=== PATIENT | female | born 2005 | race Two or more races ===

== ENCOUNTER 2024-04-10 15:18 | Emergency (ER) | payer MEDICAID, SELFPAY ==
[2024-04-10 15:28] VITALS: BP 100/68; PULSE 88; RESP 16; TEMP 36.8; O2SAT 97; BMI 28.0
--- NOTE | 2024-04-10 15:51 | EDNOTE_ITS ---
<Statement entered by Ria Armas MD - 04/10/24 16:20> As co-signing physician, I was present and available for consult prn. I concur with the plan and care as documented by the midlevel provider. ED Ear RME/HPI General Chief complaint: Ear Stated complaint: Bug in ear since 0600 today Time Seen by Provider: 04/10/24 15:26 Arrival date/time: 04/10/24 15:18 19-year-old female presents to the emergency department stating she slept over her boyfriend's house and had a bug crawl into her right ear patient reports he does not feel the bug moving but knows that there is an insect in her ear Limitations: no limitations Related Data Home Medications ?Medication ?Instructions ?Recorded ?Confirmed ergocalciferol (vitamin D2) 1,250 1,250 unit PO 1XD 02/21/24 02/21/24 mcg (50,000 unit) capsule Allergies Allergy/AdvReac Type Severity Reaction Status Date / Time No Known Allergies Allergy Verified 04/10/24 15:19 Review of Systems Review of Systems Systems Reviewed: All systems reviewed, normal except as documented Constitutional Constitutional: Reports system reviewed and no additional complaints, except as documented, Denies fever(s) and Denies headache(s) Eyes Eyes: Reports system reviewed and no additional complaints, except as documented and Denies blurry vision ENT Ears, Nose, Mouth, and Throat: Reports system reviewed and no additional complaints, except as documented, Denies headache(s), Denies nasal congestion, Denies nasal discharge and Reports other (Foreign body right ear) Cardiovascular Cardiovascular: Reports system reviewed and no additional complaints, except as documented, Denies chest pain and Denies dyspnea Respiratory Respiratory: Reports system reviewed and no additional complaints, except as documented, Denies chest congestion, Denies cough and Denies dyspnea Gastrointestinal Gastrointestinal: Reports system reviewed and no additional complaints, except as documented and Denies abdominal pain Integumentary/Breasts Skin/Breast: Reports system reviewed and no additional complaints, except as documented and Denies rash Neurologic Neurologic: Reports system reviewed and no additional complaints, except as documented, Reports as per HPI and Denies headache(s) Past Medical History Past Medical History NEUROLOGIC: Positive Neurological Disorders, Seizures and Spina Bifida CARDIAC: Negative Cardiac Disorders or Congestive Heart Failure RESPIRATORY: Negative Chronic Obstructive Pulmonary Disease (COPD) or Asthma GASTROINTESTINAL: Negative Gastrointestinal Disorders or Hepatitis GENITOURINARY: Positive Genitourinary Disorders; Negative Renal Disease REPRODUCTIVE: Negative Endometriosis, Genital Herpes, Gonorrhea, Pelvic Inflammatory Disease, Previous Pregnancies, Syphilis or Uterine Prolapse MUSCULOSKELETAL: Negative Musculoskeletal Disorders ENDOCRINE: Negative Endocrine Disorders, Diabetes Mellitus Type 1 or Diabetes Mellitus Type 2 HEMATOLOGIC: Negative Blood Disorders OTHER HISTORY: Positive Chicken Pox; Negative Hospitalization, Autoimmune Disease, Down Syndrome, Developmental Delay, Shingles, Falls, Blood Transfusions, Blood Transfusion Reaction, Anesthesia Reactions, Organ Transplant, Chemotherapy, Radiation Therapy, Hyperbaric Therapy, MRSA, VRSA, Vancomycin-Resistant Enterococci, Human Immunodeficiency Virus (HIV), Measles, Mumps, Rubella ([place] Measles), Pertussis, Clostridium Difficile or Cancer Family History FAMILY HISTORY: Negative Family Psychiatric Problems, Family Respiratory Disorders, Family Cardiac Disorders, Family Gastrointestinal Problems, Family Cancer, Family Surgery or Family Anesthesia Reaction Surgical History SURGICAL: Negative Section or Organ Transplant Social History SMOKING STATUS: Never smoker SECOND HAND EXPOSURE: No SUBSTANCE USE: does not use ED Exam General Limitations: Present no limitations General appearance: Present alert and in no apparent distress Head Head exam: Present atraumatic Eye Eye exam: Present normal appearance, PERRL and EOMI ENT ENT exam: Present mucous membranes moist and other (Foreign body right ear) Neck Neck exam: Present normal inspection, full ROM and trachea midline Chest Chest inspection: Present normal inspection and symmetric chest wall rise Respiratory Respiratory exam: Present normal lung sounds bilaterally Cardiovascular Cardiovascular exam: Present regular rate, normal rhythm and normal heart sounds Abdominal Exam Abdominal exam: Present soft and normal bowel sounds Extremities Exam Extremities exam: Present normal inspection and full ROM Back Exam Back exam: Present normal inspection and full ROM Neurological Exam Neurological exam: Present alert, oriented X3 and CN II-XII intact Psychiatric Psychiatric exam: Present normal affect and normal mood Skin Skin exam: Present warm, dry, intact and normal color Course Quality Measures none Orders Category Date Time Status ED Ear Irrigation X1 Care 04/10/24 15:32 Active Vital Signs Vital signs: Vital Signs Temperature 98.3 F 04/10/24 15:28 Pulse Rate 88 04/10/24 15:28 Respiratory Rate 16 04/10/24 15:28 Blood Pressure 100/68 04/10/24 15:28 Pulse Oximetry (%) 97 04/10/24 15:28 Oxygen Delivery Method Room Air 04/10/24 15:28 O2 saturation 97% room air within normal limits Procedures -ED FB Removal Ear Location: ear canal (R) Foreign Body Suspected: insect TM intact pre-procedure: unable to visualize Foreign Body Removed: yes Foreign Body Removal Technique: irrigation Tympanic Membrane Intact Post Procedure: Yes Patient Tolerated Procedure: well Complications: none Ear Patient data External records reviewed:: [facility] previous records Clinical information provided by:: patient Social determinants that could affect healthcare access:: none Patient has the following chronic illnesses:: None How is presenting disease/condition affected by chronic disease/condition?: no chronic disease Evaluation data The following diagnostics were reviewed and interpreted by me:: other (specify) (N/A) Lab and/or radiology exams considered but not ordered:: Consider not ordered Interpretation Summary: N/A Medications / Prescriptions Medications or Prescriptions considered but not ordered:: Given no meds Medication administrations:: Given no meds Consultations Consultation(s) initiated? (list below): No Diagnosis Ear Differential Diagnosis: otitis externa, otitis media and foreign body in ear Most likely diagnosis given after review of the tests above:: Foreign body right ear Admission Indicated Admission indicated?: not indicated Admission Request Was there a request for admission?: No Disposition Plan Disposition Plan: Discharge Discharge Attestation Discharge Attestation: The patient and all family members were given an opportunity to ask questions and understood the discharge instructions. Discharge instructions specifically effects, indications for sooner follow up or return to the emergency department, and the expected course of current diagnosis. Patient condition: Stable Medical Decision Making MDM Narrative MDM Narrative: 19-year-old female presents to the emergency department stating she slept over her boyfriend's house and had a bug crawl into her right ear patient reports he does not feel the bug moving but knows that there is an insect in her ear On exam patient does have foreign body in the right ear consistent with a bug Right ear irrigated copiously the bug is removed its entirety no evidence of canal trauma Patient discharged home in no distress to follow-up with primary care doctor in the next 24 to 48 hours and for any worsening symptoms to return to the ER immediately Differential Diagnosis Differential Diagnosis: Otitis media, otitis externa, foreign body right ear Medical Records Medical records reviewed: Yes I reviewed the patient's medical records. Discharge Plan Plan Patient Disposition: HOME (Self Care) Disposition Comment: Stable Prescriptions/Referrals Prescriptions/Med Rec: No Action ergocalciferol (vitamin D2) 1,250 mcg (50,000 unit) capsule 1,250 unit PO 1XD Patient Comments: take 1 capsule by mouth every week Problem List Clinical Impression: Foreign body in right ear Patient/Caregiver Discharge Instructions Education Materials: Anatomy of the Ear Additional Instructions: Please follow up with your primary care doctor in the next 24-48hrs for any worsening symptoms return here immediately Print Language: Gabonese Stand Alone Forms: Kiki Award Info., Patient Portal Info Letter PA/BROADCAST DIRECTOR OPERATIONS Supervising Physician PA/BROADCAST DIRECTOR OPERATIONS Supervising Physician: Dr. ARMAS
== END 2024-04-10 15:51 | disposition home or self-care (01) ==
PROVIDERS: Emergency Provider Emergency Medicine; PCP Family Medicine
DX: T16.1XXA Foreign body in right ear, initial encounter (principal); W44.F4XA Insect entering into or through a natural orifice, initial encounter
CPT/HCPCS: 69200; 99283

== ENCOUNTER 2024-06-30 20:55 | Emergency (ER) | payer MEDICAID, SELFPAY ==
--- NOTE | 2024-06-30 21:00 | EKG_ITS ---
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
[2024-06-30 21:19] VITALS: BP 111/75; PULSE 87; RESP 18; TEMP 36.8; O2SAT 98
--- NOTE | 2024-07-01 01:09 | PD.EDANX ---
ED Anxiety RME/HPI General Chief Complaint: Chest Pain Stated Complaint: 12 wks preg chest pain Time Seen by Provider: 06/30/24 21:43 Arrival date/time: 06/30/24 20:55 19F with history of anxiety/depression and seizures (has been taking meds) presents to ED with several weeks of intermittent CP. Patient is currently 12 weeks , but denies SOB, URI symptoms, ab pain, and vaginal bleeding. Patient recently stopped SSRI due to . Patient denies SI/HI. Limitations: no limitations Related Data Home Medications ?Medication ?Instructions ?Recorded ?Confirmed ergocalciferol (vitamin D2) 1,250 1,250 unit PO 1XD 02/21/24 02/21/24 mcg (50,000 unit) capsule Allergies Allergy/AdvReac Type Severity Reaction Status Date / Time No Known Allergies Allergy Verified 06/30/24 21:00 Review of Systems Review of Systems Systems Reviewed: All systems reviewed, normal except as documented Constitutional Constitutional: Reports system reviewed and no additional complaints, except as documented, Denies fever(s) and Denies headache(s) ENT Ears, Nose, Mouth, and Throat: Denies disequilibrium and Denies headache(s) Cardiovascular Cardiovascular: Reports system reviewed and no additional complaints, except as documented, Reports as per HPI, Reports chest pain and Denies dyspnea Respiratory Respiratory: Reports system reviewed and no additional complaints, except as documented, Denies cough and Denies dyspnea Gastrointestinal Gastrointestinal: Reports system reviewed and no additional complaints, except as documented, Denies abdominal pain, Denies nausea and Denies vomiting Neurologic Neurologic: Reports system reviewed and no additional complaints, except as documented, Denies confusion, Denies disequilibrium and Denies headache(s) Psychiatric Psychiatric: Denies confusion Past Medical History Past Medical History NEUROLOGIC: Positive Neurological Disorders, Seizures and Spina Bifida CARDIAC: Negative Cardiac Disorders or Congestive Heart Failure RESPIRATORY: Negative Chronic Obstructive Pulmonary Disease (COPD) or Asthma GASTROINTESTINAL: Negative Gastrointestinal Disorders or Hepatitis GENITOURINARY: Positive Genitourinary Disorders; Negative Renal Disease REPRODUCTIVE: Negative Endometriosis, Genital Herpes, Gonorrhea, Pelvic Inflammatory Disease, Previous Pregnancies, Syphilis or Uterine Prolapse MUSCULOSKELETAL: Negative Musculoskeletal Disorders ENDOCRINE: Negative Endocrine Disorders, Diabetes Mellitus Type 1 or Diabetes Mellitus Type 2 HEMATOLOGIC: Negative Blood Disorders OTHER HISTORY: Positive Chicken Pox; Negative Hospitalization, Autoimmune Disease, Down Syndrome, Developmental Delay, Shingles, Falls, Blood Transfusions, Blood Transfusion Reaction, Anesthesia Reactions, Organ Transplant, Chemotherapy, Radiation Therapy, Hyperbaric Therapy, MRSA, VRSA, Vancomycin-Resistant Enterococci, Human Immunodeficiency Virus (HIV), Measles, Mumps, Rubella ([place] Measles), Pertussis, Clostridium Difficile or Cancer Family History FAMILY HISTORY: Negative Family Psychiatric Problems, Family Respiratory Disorders, Family Cardiac Disorders, Family Gastrointestinal Problems, Family Cancer, Family Surgery or Family Anesthesia Reaction Surgical History SURGICAL: Negative Section or Organ Transplant Social History SMOKING STATUS: Never smoker SECOND HAND EXPOSURE: No SUBSTANCE USE: does not use ED Exam General Limitations: Present no limitations General appearance: Present alert and in no apparent distress Head Head exam: Present atraumatic Eye Eye exam: Present normal appearance, PERRL and EOMI ENT ENT exam: Present normal exam, normal oropharynx and mucous membranes moist Neck Neck exam: Present normal inspection, full ROM and trachea midline Chest Chest inspection: Present normal inspection and symmetric chest wall rise Respiratory Respiratory exam: Present normal lung sounds bilaterally Cardiovascular Cardiovascular exam: Present regular rate, normal rhythm and normal heart sounds Abdominal Exam Abdominal exam: Present soft and normal bowel sounds Extremities Exam Extremities exam: Present normal inspection and full ROM Back Exam Back exam: Present normal inspection and full ROM Neurological Exam Neurological exam: Present alert, oriented X3 and CN II-XII intact Psychiatric Psychiatric exam: Present normal mood and flat affect (somewhat) Skin Skin exam: Present warm, dry, intact and normal color Course Quality Measures none Orders Category Date Time Status EKG (ED ONLY) *Do not use* NOW Care 06/30/24 21:00 Completed EKG (ED Only) Stat Exams 06/30/24 21:00 Draft Vital Signs Vital signs: Vital Signs Temperature 98.3 F 06/30/24 21:19 Pulse Rate 87 06/30/24 21:19 Respiratory Rate 18 06/30/24 21:19 Blood Pressure 111/75 06/30/24 21:19 Pulse Oximetry (%) 98 06/30/24 21:19 Oxygen Delivery Method Room Air 06/30/24 21:19 Anxiety MDM Narrative MDM Narrative: 19F with history of anxiety/depression and seizures (has been taking meds) presents to ED with several weeks of intermittent CP. Patient is currently 12 weeks , but denies SOB, URI symptoms, ab pain, and vaginal bleeding. Patient recently stopped SSRI due to . Patient denies SI/HI. Physical exam reveals clear lungs. RRR. Patient is afebrile, alert, but has a somewhat flat affect. EKG is NSR. Likely stress reaction/anxiety. Patient declines benzo. Patient data External records reviewed:: [facility] previous records Clinical information provided by:: patient Social determinants that could affect healthcare access:: mental health Patient has the following chronic illnesses:: anxiety/depression and seizures How is presenting disease/condition affected by chronic disease/condition?: exacerbated by Evaluation data The following diagnostics were reviewed and interpreted by me:: EKG tracing(s) Lab and/or radiology exams considered but not ordered:: ordered Interpretation Summary: above Medications / Prescriptions Medications or Prescriptions considered but not ordered:: not ordered Medication administrations:: n/a Consultations Consultation(s) initiated? (list below): No Diagnosis Differential diagnosis anxiety: hyperventilation, panic disorder, acute anxiety and other (stress reaction) Most likely diagnosis given after review of the tests above:: stress reaction Admission Indicated Admission indicated?: not indicated Admission Request Was there a request for admission?: No Disposition Plan Disposition Plan: Discharge Discharge Attestation Discharge Attestation: The patient and all family members were given an opportunity to ask questions and understood the discharge instructions. Discharge instructions specifically effects, indications for sooner follow up or return to the emergency department, and the expected course of current diagnosis. Patient condition: Stable Discharge Plan Plan Patient Disposition: HOME (Self Care) Disposition Comment: Stable Prescriptions/Referrals Prescriptions/Med Rec: No Action ergocalciferol (vitamin D2) 1,250 mcg (50,000 unit) capsule 1,250 unit PO 1XD Patient Comments: take 1 capsule by mouth every week Problem List Clinical Impression: Stress reaction Patient/Caregiver Discharge Instructions Education Materials: Your Body's Response to Anxiety Additional Instructions: Please follow-up with PCP within 24-48 hours and return immediately if symptoms worsen. Print Language: Djiboutian Stand Alone Forms: Patient Portal Info Letter OTTO/BETO Supervising Physician OTTO/BETO Supervising Physician: Dr. Saldivar
== END 2024-06-30 21:48 | disposition home or self-care (01) ==
LOC: SERX 21:51
PROVIDERS: Emergency Provider Emergency Medicine; PCP Family Medicine
DX: O99.341 Other mental disorders complicating pregnancy, first trimester (principal); F43.9 Reaction to severe stress, unspecified; F41.9 Anxiety disorder, unspecified; F32.A Depression, unspecified
CPT/HCPCS: 93005; 99283

== ENCOUNTER 2024-08-29 03:15 | Emergency (ER) | payer MEDICAID, SELFPAY ==
[2024-08-29 03:17] VITALS: BMI 31.0
[2024-08-29 03:27] VITALS: BP 104/69; PULSE 95; RESP 16; TEMP 36.8; O2SAT 97
--- NOTE | 2024-08-29 03:54 | XR_ITS ---
Examination: Complete OB ultrasound greater than 14 weeks Date and time of exam: August 29, 2024, 0541 hours INDICATIONS: Seizure one hour ago Findings: Viable intrauterine single fetus with single amniotic sac presentation breech Cardiac motion 132 BPM Placenta anterior grade 1 Umbilical cord insertion seen. Amniotic fluid index 9.7 cm. spine anterior Cervix 5.1 cm Ovaries obscured by the uterus. Composite estimated gestational age based on BPD, head circumference, abdominal circumference, femur length is 18 weeks 5 days Estimated weight 261.6 g. Survey of intracranial anatomy, spinal anatomy, abdominal anatomy, four-chamber heart performed with no abnormalities identified. Impression: Viable intrauterine gestation breech presentation.
[2024-08-29 04:59] LABS: Collection Type, Urine Clean Catch
--- NOTE | 2024-08-29 05:19 | EDRME_ITS ---
Rapid Medical Screening Exam [facility] Arrival date/time: 08/29/24 03:15 19F with history of seizures presents to ED with seizure today lasting about 1 min while she was in bed. Patient possibly forgot to take her morning seizures meds (Keppra and Lamictal). Patient is also 19 weeks , but denies ab/pelvic pain and vaginal bleeding. Patient would still like US to make sure is viable. Patient has no symptoms except for a SANTANA. Chief Complaint: Seizure Time Seen by Provider: 08/29/24 04:09 Vital signs: Vital Signs Temperature 98.2 F 08/29/24 03:27 Pulse Rate 95 08/29/24 03:27 Respiratory Rate 16 08/29/24 03:27 Blood Pressure 104/69 08/29/24 03:27 Pulse Oximetry (%) 97 08/29/24 03:27 Oxygen Delivery Method Room Air 08/29/24 03:27
[2024-08-29 05:26] LABS: Bacteria,Urine Rare; Bilirubin,Urine Negative (Negative); Blood,Urine Negative (Negative); Clarity,Urine Turbid (Clear/Hazy); Color,Urine Yellow (Lt Yel-Yel); Glucose, Urine Negative (Negative); Ketones,Urine 1+ (Negative); Leukocyte Esterase,Urine Positive (Negative); Nitrite,Urine Negative (Negative); PH,Urine 6.5 (5.0-7.0); Protein,Urine 1+ (Neg - Trace); RBC,Urine 1 /hpf (0-3); Specific Gravity,Urine 1.031 (1.001-1.035); Squamous Epithelial Cell,Urine 1 /hpf (0-5); WBC,Urine 1 /hpf (0-5)
[2024-08-29 06:05] LABS: Lactate (Lactic Acid) 0.9 mMol/L (0.4-2.0)
[2024-08-29 06:09] LABS: Basophils % (Auto) 0 % (0-2.5); Eosinophils # (Auto) 0.1 Thou/mm3 (0.0-0.5); Eosinophils % (Auto) 1 % (0-10); Hematocrit 34.4 % (36.0-46.0); Hemoglobin 12.1 g/dL (12.0-16.0); Immature Granulocytes % (Auto) 1 % (0-0); Immature Granulocytes Auto 0.09 Thou/mm3 (0.00-0.00); Lymphocytes % (Auto) 20 % (10-50); Mean Corpuscular HGB Conc 35.2 g/dl (31.0-37.0); Mean Corpuscular Hemoglobin 30.3 pg (25.0-35.0); Mean Corpuscular Volume 86 fL (80-100); Monocytes # (Auto) 0.5 Thou/mm3 (0.0-0.8); Monocytes % (Auto) 5 % (0-12); Neutrophils # (Auto) 7.6 Thou/mm3 (1.8-7.7); Neutrophils % (Auto) 74 % (37-80); Nucleated Red Blood Cell % 0 /100 WBC (0); Platelet Count 208 Thou/mm3 (140-440); RDW Standard Deviation 41.2 fL (36.4-46.3); White Blood Count 10.3 Thou/mm3 (3.6-11.0)
[2024-08-29 06:27] LABS: Alanine Aminotransferase 26 U/L (10-49); Albumin, Serum 4.1 gm/dL (3.5-5.0); Albumin/Globulin Ratio 1.5 (1.2-2.2); Alkaline Phosphatase 78 U/L (46-116); Anion Gap 10 (7-16); Aspartate Amino Transferase 23 U/L (0-34); BUN/Creatinine Ratio 10 Ratio (12-20); Bilirubin,Total 0.3 mg/dL (0.3-1.2); Blood Urea Nitrogen 6 mg/dL (9-23); Carbon Dioxide 23.4 mMol/L (20.0-31.0); Chloride 106 mMol/L (98-107); Creatinine (Component) 0.6 mg/dL (0.6-1.3); Estimated Creatinine Clearance 153.7 mL/min (>60); Globulin 2.8 gm/dL (2.3-3.5); Glucose 98 mg/dL (74-106); Magnesium 1.9 mg/dL (1.6-2.6); Osmolality,Calculated 275 (275-295); Sodium 139 mMol/L (136-145); Total Protein 6.9 gm/dL (5.7-8.2); eGFR > 60 See Note
--- NOTE | 2024-08-29 08:14 | PRELIM_ITS ---
Obstetric ultrasound. August 29, 2024 0451 hours Clinical history: Had seizure; denies pain/bleeding; wants to check Findings: There is a gravid uterus with a live fetus in breechpresentation of mean gestational age 18weeks and 5days (by biometry). cardiac activity is present at a heart rate of 132beats per minute. The placenta is anteriorin location, maturity grade I. There is no evidence of placenta previa or ret roplacental hemorrhage. Amniotic fluid is adequate (LESLIE = 9.7cm). Estimated weight is 261.6grams+/- 39grams. The cervical length measuring 5.1cm, appears unremarkable. Estimated due date by ultrasound is 01/25/2025. 4 chamber heart, bladder, kidneys , stomach, spine are seen. Both ovaries are not visualized due to enlarged uterus. Impression: Gravid uterus with a single live fetus in breech presentation of mean gestational age 18weeks 5days. Report Electronically Signed By: Di Encarnacion 08/29/2024 8:13:41 AM [EST]
[2024-08-29 09:19] VITALS: BP 100/69; PULSE 69; RESP 18; TEMP 36.7; O2SAT 99
--- NOTE | 2024-08-29 09:29 | PD.EDSEIZ ---
ED Seizures RME/HPI General Chief Complaint: Seizure Stated Complaint: 19 WKS PREG HAD A SZ HX OF Time Seen by Provider: 08/29/24 04:09 Arrival date/time: 08/29/24 03:15 RME / HPI RME / HPI Narrative: 08/29/24 03:15 19F with history of seizures presents to ED with seizure today lasting about 1 min while she was in bed. Patient possibly forgot to take her morning seizures meds (Keppra and Lamictal). Patient is also 19 weeks , but denies ab/pelvic pain and vaginal bleeding. Patient would still like US to make sure is viable. Patient has no symptoms except for a SANTANA. DR. ARMAS MAIN ED EVALUATION: 19 year old female with history of recurrent seizures presented to the ER for evaluation after seizure. Patient also complains of feeling confused and tired from the episode. Per patient. she experience a seizure sdc teacher on 08/29/24 and was witnessed by her parents. Per patient, parents stated seizure last about 1 minute and patient state she sustains no injuries and no fall from her seizure. Patient states her last seizure was in February 2024 and she currently takes Keppra and Lamictal for her seizures. Patient states she missed her medication dosage this morning. Per patient, her last appointment with her neurologist was in March 2024 and was suppose to be referred but never heard anything. Patient states she has just been following up with her primary OB physician. Related Data Home Medications ?Medication ?Instructions ?Recorded ?Confirmed ergocalciferol (vitamin D2) 1,250 1,250 unit PO 1XD 02/21/24 02/21/24 mcg (50,000 unit) capsule Previous Rx's ?Medication ?Instructions ?Recorded nitrofurantoin 100 mg PO Q12H 7 days #14 caps 08/29/24 monohydrate/macrocrystals 100 mg capsule Allergies Allergy/AdvReac Type Severity Reaction Status Date / Time No Known Allergies Allergy Verified 08/29/24 03:23 Review of Systems Review of Systems Systems Reviewed: All systems reviewed, normal except as documented Narrative Review of Systems: Gen: No fever, no chills, no weight loss EYES: No discharge, no visual changes, no pain HEENT: No ear pain, no congestion, no sore throat PULM: No shortness of breath, no cough, no congestion CV: No chest pain, no dyspnea on exertion, no palpitations GI: No nausea, no vomiting, no diarrhea, no pain, no constipation : No frequency, no urgency, no dysuria Musc/skel: No joint pain, no back pain Skin: No rash Psyc: No hallucinations, no depression Heme/Lymph: No easy bleeding or bruising tendencies Neuro: +weakness, no headache. +seizure Past Medical History Past Medical History NEUROLOGIC: Positive Neurological Disorders, Seizures and Spina Bifida GENITOURINARY: Positive Genitourinary Disorders Social History SMOKING STATUS: Never smoker SECOND HAND EXPOSURE: No SUBSTANCE USE: does not use ED Exam Narrative Physical exam: GENERAL APPEARANCE: alert and oriented x 4, well-developed, well-nourished, no acute distress HEENT: normocephalic, atraumatic NECK: supple LUNGS: no respiratory distress, normal effort HEART: good peripheral perfusion ABDOMEN: non distended EXTREMITIES: atraumatic NEUROLOGIC: awake; alert and oriented x4; cranial nerves II-XII grossly intact PSYCHIATRIC: appropriate mood and affect SKIN: warm, dry, normal color; no rashes Course Quality Measures none Orders Category Date Time Status Blood glucose [Bedside Blood Glucose] NOW Care 08/29/24 03:37 Active US OB >= 14 weeks Fetus Stat Exams 08/29/24 03:54 Completed CBC Stat Lab 08/29/24 06:00 Completed CMP [Comprehensive Metabolic Panel] Stat Lab 08/29/24 06:00 Completed Lactate (Lactic Acid) Stat Lab 08/29/24 06:00 Completed Magnesium Stat Lab 08/29/24 06:00 Completed UA [Urinalysis] Stat Lab 08/29/24 04:20 Completed Urine Culture Stat Lab 08/29/24 04:20 Received Urine Culture Stat Lab 08/29/24 09:32 Ordered Nitrofurantoin Macro [Macrobid] Med 08/29/24 09:33 Discontinued 100 mg PO X1 ONE lamoTRIgine [LaMICtal] Med 08/29/24 09:30 Discontinued 300 mg PO X1 ONE levETIRAcetam [Keppra] Med 08/29/24 09:30 Discontinued 750 mg PO X1 ONE Vital Signs Vital signs: Vital Signs Temperature 98.2 F 08/29/24 03:27 Pulse Rate 95 08/29/24 03:27 Respiratory Rate 16 08/29/24 03:27 Blood Pressure 104/69 08/29/24 03:27 Pulse Oximetry (%) 97 08/29/24 03:27 Oxygen Delivery Method Room Air 08/29/24 03:27 Seizure MDM Narrative MDM Narrative:: Janna Mccrary am scribing for and in the presence of Dr. Armas. Patient data External records reviewed:: [facility] previous records Clinical information provided by:: patient Social determinants that could affect healthcare access:: none Patient has the following chronic illnesses:: recurrent seizures How is presenting disease/condition affected by chronic disease/condition?: exacerbated by Evaluation data The following diagnostics were reviewed and interpreted by me:: lab results and radiology exam(s) Lab and/or radiology exams considered but not ordered:: none Interpretation Summary: Ordering Physician: Edward Kimball PA-C Date of Service: 08/29/24 Procedure(s): US OB >= 14 weeks Fetus Accession Number(s): [id number] cc: Sharon Ibrahim DO; Yanick Curry MD; Edward Kimball PA-C~ Examination: Complete OB ultrasound greater than 14 weeks Date and time of exam: August 29, 2024, 0541 hours INDICATIONS: Seizure one hour ago Findings: Viable intrauterine single fetus with single amniotic sac presentation breech Cardiac motion 132 BPM Placenta anterior grade 1 Umbilical cord insertion seen. Amniotic fluid index 9.7 cm. spine anterior Cervix 5.1 cm Ovaries obscured by the uterus. Composite estimated gestational age based on BPD, head circumference, abdominal circumference, femur length is 18 weeks 5 days Estimated weight 261.6 g. Survey of intracranial anatomy, spinal anatomy, abdominal anatomy, four-chamber heart performed with no abnormalities identified. Impression: Viable intrauterine gestation breech presentation. Dictated By: Yanick Curry MD Signed By: <Electronically signed by Yanick Curry MD in OV> 08/29/24 0805 Medications / Prescriptions Medications or Prescriptions considered but not ordered:: none Medication administrations:: Medication Administration History Discontinued Medications Lamotrigine (Lamotrigine 25 Mg Chew) 300 mg PO X1 ONE Stop: 08/29/24 09:31 Levetiracetam (Levetiracetam 250 Mg Tablet) 750 mg PO X1 ONE Stop: 08/29/24 09:31 Nitrofurantoin Macrocrystals (Nitrofurantoin Macro 100 Mg Capsule) 100 mg PO X1 ONE Stop: 08/29/24 09:34 see above. Consultations Consultation(s) initiated? (list below): No Diagnosis Seizure Differential Diagnosis: intractable seizure disorder and generalized seizure Most likely diagnosis given after review of the tests above:: recurrent seizures, , UTI (urinary tract infection) in in second trimester Admission Indicated Admission indicated?: not indicated Admission Request Was there a request for admission?: No Disposition Plan Disposition Plan: Discharge Discharge Attestation Discharge Attestation: The patient and all family members were given an opportunity to ask questions and understood the discharge instructions. Discharge instructions specifically effects, indications for sooner follow up or return to the emergency department, and the expected course of current diagnosis. Patient condition: Stable Discharge Plan Plan Patient Disposition: HOME (Self Care) Prescriptions/Referrals Prescriptions/Med Rec: New nitrofurantoin monohyd/m-cryst 100 mg capsule 100 mg PO Q12H 7 Days Qty: 14 0RF Rx Instructions: must administer with a meal/food No Action ergocalciferol (vitamin D2) 1,250 mcg (50,000 unit) capsule 1,250 unit PO 1XD Patient Comments: take 1 capsule by mouth every week Referrals: Sharon Ibrahim DO [Primary Care Provider] - In 1 week Akshat Gooden MD [Physician] - Problem List Clinical Impression: Recurrent seizures, , UTI (urinary tract infection) in in second trimester Patient/Caregiver Discharge Instructions Education Materials: Urinary Tract Infections in Women, Preg 2nd Trimester, ED Seizure, Recurrent (Adult) Print Language: Irish Stand Alone Forms: Kiki Award Info., Patient Portal Info Letter
[2024-08-29] MEDS: lamoTRIgine 25 MG CHEW 300 MG PO (10:13)
[2024-08-29] MEDS: levETIRAcetam 250 MG TABLET 750 MG PO (10:14)
[2024-08-29] MEDS: NITROFURANTOIN MACRO 100 MG CAPSULE PO (10:15)
== END 2024-08-29 10:30 | disposition home or self-care (01) ==
PROVIDERS: Physician Assistant; Emergency Provider Emergency Medicine; PCP Family Medicine
DX: O99.352 Diseases of the nervous system complicating pregnancy, second trimester (principal); G40.909 Epilepsy, unspecified, not intractable, without status epilepticus; O23.42 Unspecified infection of urinary tract in pregnancy, second trimester; Z3A.19 19 weeks gestation of pregnancy
CPT/HCPCS: 36415; 76805; 80053; 81001; 83605; 83735; 85025; 87086; 99284; A9270

== ENCOUNTER 2024-10-01 19:23 | Inpatient (IN) | payer MEDICAID, SELFPAY ==
[2024-10-01] VITALS (75 sets, daily range): BP systolic 89–127; BP diastolic 51–77; PULSE 77–122; RESP 18–100; TEMP 36.5–37.1; O2SAT 93–100; BMI 32.1
[2024-10-01] MEDS: ACETAMINOPHEN 500 MG TABLET 1000 MG PO (19:57)
--- NOTE | 2024-10-01 20:12 | XR_ITS ---
Examination: Complete OB ultrasound greater than 14 weeks Date and time of exam: October 01, 2024 2024 hours INDICATIONS: Seizure today Findings: Viable intrauterine single fetus with single amniotic sac Viable intrauterine gestation cephalic presentation Cardiac motion 140 BPM Placenta anterior grade 2 Umbilical cord insertion 3 vessel seen Amniotic fluid volume adequate spine maternal right Cervix 3.8 cm Ovaries obscured by bowel gas. Composite estimated gestational age based on BPD, head circumference, abdominal circumference, femur length is 23 weeks 6 days Estimated weight 628 g. Survey of intracranial anatomy, spinal anatomy, abdominal anatomy, four-chamber heart performed with no abnormalities identified. Impression: Viable intrauterine gestation cephalic presentation.
[2024-10-01] MEDS: LORazepam 2 MG/ML VIAL 1 MG IVP (21:44)
[2024-10-01] MEDS: RINGERS LACTATED 1000 ML 1,000 ML 999 ML IV (21:47)
--- NOTE | 2024-10-01 21:50 | ESHP_ITS ---
Documentation for date of: 10/01/24 OB Labor/Induct. HPI History of Present Illness Chief complaint: Brought in by ambulance after a seizure 23 weeks : 2 Para: 1 Term pregnancies: 1 pregnancies: 0 Living children: 1 History of Abortions: Spontaneous and Elective: 0 History of Vaginal deliveries: 1 History of sections: No History of : No KAVITHA: 01/18/25 Gestational Age (weeks): 24 Gestational Age (days): 3 History of present illness: The patient was brought in by ambulance after a seizure. The patient is a 19 -year-old -0-0-1 currently 24-3/7 weeks . She states she underwent an uncomplicated vaginal delivery at age and that she developed seizures after this delivery. She denied any problems with the or her delivery. She denied any fevers. She denied any history of preeclampsia or high blood pressure or stroke. No history of an infectious etiology. She was worked up at [facility] through neurology in the past including a brain scan and has been managed by them until March 2024.. Recently, as she is 19 years old, she was supposed to be referred to [facility] follow with a neurologist there and is and unable to be seen there yet. She was unable to get an appointment per patient. She is on Keppra XR 1500 milligrams twice daily and Lamictal 300 milligrams twice daily. The patient came in with a seizure when she was 18 weeks to the ER about 08/29/2024. She was brought in by squad this afternoon after another seizure. It was witnessed by her boyfriend who is present here at bedside and her mother. The patient had a grand mal seizure. She did not not hit her head have any bleeding or have any vomiting. She had been stable on labor and delivery and we performed an ultrasound and we were waiting for the reading when the patient had another seizure. Dr. Akshat Gooden from neurology was called and recommended 1500 mg of IV Keppra stat. If the patient continues to seize, she recommended 200 mg IV of lacosamide, followed by 100 p.o. twice daily. She recommended the patient stay overnight for observation on a telemetry medicine floor. History of Present Dating criteria: LMP confirmed by 1st trimester US Adequate Care: Yes Medical complications: neurological Narrative: Patient has grand mal seizures. On Keppra XR 1500 mg p.o. twice daily and Lamictal [address] twice daily [address] Holden is managing her care and no records are available at the time of admission. She does not currently have a neurologist. She is not currently on any extra folic acid per patient. The patient is not being comanaged with an MFM and has not had a level 2 ultrasound performed Labs Maternal Blood Type: Unknown Labs: Unknown: RPR, Hepatitis B, Rubella Titre, HIV, Chlamydia, Gonorrhea, Herpes Type 1, Herpes Type 2, Group Beta Strep and Covid-19 Past Medical History Surgical History SURGICAL: Negative Section Meds Home Medications and Allergies Home Medications ?Medication ?Instructions ?Recorded ?Confirmed ?Type ergocalciferol (vitamin D2) 1,250 1,250 unit PO 1XD 02/21/24 History mcg (50,000 unit) capsule lamotrigine 300 mg tablet,extended mg PO 10/01/24 His tory release 24 hr levetiracetam 750 mg mg PO BID 10/01/24 History tablet,extended release 24 hr pyridoxine (vitamin B6) 25 mg mg 10/01/24 History tablet (Vitamin B-6) Allergies Allergy/AdvReac Type Severity Reaction Status Date / Time No Known Allergies Allergy Verified 10/01/24 19:41 OB Exam Physical Exam Vital signs: Temp Pulse Resp BP Pulse Ox 97.7 F 120 H 18 98/54 L 100 10/01/24 19:57 10/01/24 21:46 10/01/24 19:27 10/01/24 21:46 10/01/24 21:48 Narrative: Fundus firm nontender fundal height about 23. NST reactive no contractions Routine Abdominal Exam Abdominal: Present soft Detailed Labor and Delivery Exam Membranes: intact monitor accelerations: 10x10 monitor decelerations: None meterman variability: Average (6-10) Tachysystole: No Comments: Monitoring appropriately for 24-week intrauterine OB Assessment & Plan Assessment and Plan (1) Seizure disorder: Status: Acute Assessment and plan: On Keppra XR 1500 mg twice daily on the mental 300 mg twice daily discussed with on-call neurologist Dr. Chatterjee and will give 1500 mg of Keppra IV now continue to monitor. Patient to be admitted to medicine service for further recommendations on telemetry overnight. (2) Supervision of high risk in second trimester: Status: Acute
[2024-10-01] MEDS: levETIRAcetam INJ 100 MG/ML VIAL 5ML 1500 MG IVP (22:04)
--- NOTE | 2024-10-01 22:36 | PD.RESCONSUL ---
HPI Data of Consult Consult date: 10/01/24 Requesting Physician: Jodi Penaloza MD ([facility]) Admitting Provider: Jodi Penaloza MD ([facility]) Attending Provider: Jodi Penaloza MD ([facility]) Primary Care Provider: Physician No Primary/Family Consult Narrative Reason for consult: Seizure disorder History of present illness: 19-year-old female G2, P1 who is currently 24 weeks with past medical history of seizure disorder who was brought in by ambulance due to seizure activity. Patient had a witnessed seizure today at home witnessed by boyfriend where she became tonic-clonic her eyes rolled back and boyfriend caught her fall. Patient did not hit her head denies any tongue biting, urinary or bowel incontinence. She was originally admitted to the OB floor however patient had a rapid response due to a second seizure was given 1 mg of Ativan to break the seizure and was given 1500mg of keppra as per neurology recommendations. [employer] consulted in-house neurology and internal medicine for continued management of seizure-like activity and telemetry monitoring. Patient states that her last seizure was around 2 months ago reported as similar in presentation. Patient at home takes Keppra 3000 daily as well as lamotrigine 300 mg twice daily. Apperantly patient missed her doses of seizure medications today. At this time patient denies fever, chills, shortness of breath, chest pain, palpitations, N/V/D. PMHx: As above SxHx: 1x vaginal delivery, cholecystectomy Social Hx:denies alcohol, denies cigarette use, denies illicit substances including THC cc:: cc: Jodi Penaloza MD ([facility]) Review of Systems Review of Systems Systems Reviewed: All systems reviewed, normal except as documented Narrative Review of Systems: All 12 systems reviewed and negative unless otherwise stated in the HPI. Exam Vital Signs Temp Pulse Resp BP Pulse Ox 97.7 F 117 H 18 89/54 L 100 10/01/24 19:57 10/01/24 22:28 10/01/24 19:27 10/01/24 22:28 10/01/24 22:33 Narrative Exam Physical Exam GENERAL: NAD, AAOx3, post-ictal HEENT: Moist mucosa. Eyes open, symmetrical, & clear CARDIO: Heart tachycardic, no obvious murmurs PULM: No noted coughing/dyspnea CTA B/L, no R/W/R GI: Abdomen soft, gravid consistent with 24-week , SKIN/MSK/EXT: No wounds/rashes/edema/amputations, no pain on palpation. Pedal pulses present B/L Results Labs 10/01/24 22:36 10/01/24 22:36 Quality Measures Quality Measures VTE prophylaxis Medications Home Medications and Allergies Home Medications ?Medication ?Instructions ?Recorded ?Confirmed ?Type ergocalciferol (vitamin D2) 1,250 1,250 unit PO 1XD 02/21/24 02/21/24 History mcg (50,000 unit) capsule lamotrigine 300 mg tablet,extended mg PO 10/01/24 History release 24 hr levetiracetam 750 mg mg PO BID 10/01/24 History tablet,extended release 24 hr pyridoxine (vitamin B6) 25 mg mg 10/01/24 History tablet (Vitamin B-6) Allergies Allergy/AdvReac Type Severity Reaction Status Date / Time No Known Allergies Allergy Verified 10/01/24 19:41 Visit Medications Acetaminophen (Acetaminophen 500 Mg Tablet) 1,000 mg PO Q6HR PRN PRN Reason: HEADACHE Stop: 10/31/24 19:48 Last Admin: 10/01/24 19:57 Dose: 1,000 mg Lactated Ringer's (Lactated Ringers) 1,000 mls @ 999 mls/hr IV .Q1H1M ONE Stop: 10/01/24 22:43 Last Admin: 10/01/24 21:47 Dose: 999 mls/hr Discontinued Medications Levetiracetam (Levetiracetam Inj 100 Mg/Ml Vial 5ml) 1,500 mg IVP X1 ONE Stop: 10/01/24 21:49 Last Admin: 10/01/24 22:04 Dose: 1,500 mg Lorazepam (Lorazepam 2 Mg/Ml Vial) 1 mg IVP X1 STA Stop: 10/01/24 21:43 Last Admin: 10/01/24 21:44 Dose: 1 mg Assessment & Plan Plan 19-year-old female G2, P1 who is currently 24 weeks with past medical history of seizure disorder who was brought in by ambulance due to seizure activity. #Seizure disorder Patient has had 2x seizures today 10/01/2024 denies tongue biting, bowel or urinary incontinence Patient at home takes Keppra 3000 daily as well as lamotrigine 300 mg twice daily. Missed today dose apperantly RR called for seizure disorder was given 1mg Ativan and 1500mg of keppra and seizure activity subsided currently patient is post-ictal ? Keppra 1500 twice daily ? Lamotrigine 300 every 24 hours ? Ativan 1 mg as needed for breakthrough seizures ? 500 mL bolus LR as blood pressure is on the softer side ? EEG ? In-house neurology consulted appreciate recs #High risk in second trimester ? Managed as per primary team Thank you for allowing us to be part of patient's care. Internal medicine team Case discussed with my attending Dr. Aneta Majano MD PGY-1 Attending Provider Attestation/Addendum I reviewed labs, imaging, EKG, home medications and prior available records. Face to face evaluation was performed by me. I have personally examined the patient and discussed assessment and plan with the IM team. I reviewed the resident note and agree with the plan with exceptions as below. Breakthrough seizures History of seizures , 24 weeks Resume Keppra 1500 mg IV twice daily Resume home lamotrigine IV Ativan for breakthrough seizures If further seizures, give IV lacosamide 200 mg followed by lacosamide 100 mg twice daily Consult neurology Seizure precautions Management of per primary team
[2024-10-01 23:09] LABS: Lactate (Lactic Acid) 4.1 mMol/L (0.4-2.0)
[2024-10-01 23:17] LABS: Basophils % (Auto) 0 % (0-2.5); Eosinophils % (Auto) 0 % (0-10); Immature Granulocytes % (Auto) 1 % (0-0); Immature Granulocytes Auto 0.11 Thou/mm3 (0.00-0.00); Lymphocytes # (Auto) 1.9 Thou/mm3 (1.0-4.8); Lymphocytes % (Auto) 18 % (10-50); Mean Corpuscular HGB Conc 35.5 g/dl (31.0-37.0); Mean Corpuscular Hemoglobin 30.1 pg (25.0-35.0); Mean Corpuscular Volume 85 fL (80-100); Monocytes # (Auto) 0.6 Thou/mm3 (0.0-0.8); Monocytes % (Auto) 6 % (0-12); Neutrophils # (Auto) 8.3 Thou/mm3 (1.8-7.7); Neutrophils % (Auto) 75 % (37-80); Nucleated Red Blood Cell % 0 /100 WBC (0); Platelet Count 204 Thou/mm3 (140-440); RDW Standard Deviation 39.5 fL (36.4-46.3); Red Blood Count 3.65 Miln/mm3 (4.00-5.20)
[2024-10-01 23:26] LABS: Alanine Aminotransferase 13 U/L (10-49); Albumin, Serum 3.6 gm/dL (3.5-5.0); Albumin/Globulin Ratio 1.6 (1.2-2.2); Alkaline Phosphatase 77 U/L (46-116); Anion Gap 12 (7-16); Aspartate Amino Transferase 19 U/L (0-34); BUN/Creatinine Ratio 8 Ratio (12-20); Bilirubin,Total 0.3 mg/dL (0.3-1.2); Blood Urea Nitrogen < 5 mg/dL (9-23); Calcium 8.4 mg/dL (8.3-10.6); Calcium (Corrected) 8.7 mg/dL (8.5-10.1); Carbon Dioxide 18.6 mMol/L (20.0-31.0); Chloride 107 mMol/L (98-107); Creatinine (Component) 0.6 mg/dL (0.6-1.3); Estimated Creatinine Clearance 150.5 mL/min (>60); Globulin 2.3 gm/dL (2.3-3.5); Glucose 89 mg/dL (74-106); Osmolality,Calculated 271 (275-295); Potassium 3.8 mMol/L (3.4-5.1); Sodium 138 mMol/L (136-145); Total Protein 5.9 gm/dL (5.7-8.2); eGFR > 60 See Note
[2024-10-01 23:41] LABS: HIV (1&2) Antibody Rapid Non-Reactive
[2024-10-01 23:42] LABS: Hepatitis B Surface Antigen Non Reactive (Non React); Rubella, IgG Antibody Reactive (Immune)
[2024-10-02] VITALS (12 sets, daily range): BP systolic 90–99; BP diastolic 58–65; PULSE 81–101; O2SAT 97–100
[2024-10-02 01:38] LABS: Syphilis Nonreactive (Nonreactive)
[2024-10-02 01:58] LABS: Reflex Lactate? Y
[2024-10-02 03:25] LABS: Amphetamine/Metham Scrn,Ur OB Negative (Negative); Benzoylecgonine Screen, Ur OB Negative (Negative); Opiate Screen,Urine OB Negative (Negative); THC Screen,Urine OB Negative (Negative)
== END 2024-10-02 00:48 | disposition admitted as inpatient to this hospital (09) | DRG 566 ==
PROVIDERS: Student in an Organized Health Care Education/Training Program; Admitting Provider Obstetrics & Gynecology; Visit Provider Obstetrics & Gynecology
DX: O99.352 Diseases of the nervous system complicating pregnancy, second trimester (principal); G40.409 Other generalized epilepsy and epileptic syndromes, not intractable, without status epilepticus; Z3A.24 24 weeks gestation of pregnancy; Z79.899 Other long term (current) drug therapy
CPT/HCPCS: 36415; 59025; 76805; 80053; 80307; 83605; 83735; 84100; 85025; 86703; 86762; 86780; 86850; 86900; 86901; 87340; J1953; J2060; J7120; A9270

== ENCOUNTER 2024-10-03 00:22 | Emergency (ER) | payer MEDICAID, SELFPAY ==
[2024-10-03 00:26] VITALS: BMI 31.0
[2024-10-03 00:29] VITALS: BP 107/70; PULSE 104; RESP 18; TEMP 36.8; O2SAT 98
--- NOTE | 2024-10-03 00:56 | PC.NURSE ---
PT AWAKE, ALERT AND RESPONSIVE, NO SZ ACTIVITY AT THIS TIME.
--- NOTE | 2024-10-03 01:01 | PC.NURSE ---
PT AND PT'S MOTHER INFORMED ME THAT THEY ARE GOING HOME.
== END 2024-10-03 01:02 | disposition left against medical advice (07) ==
LOC: SERX 01:26
PROVIDERS: Emergency Provider Emergency Medicine
DX: Z53.21 Procedure and treatment not carried out due to patient leaving prior to being seen by health care provider (principal)
CPT/HCPCS: 99281

== ENCOUNTER 2024-12-12 22:39 | Emergency (ER) | payer MEDICAID, SELFPAY ==
[2024-12-12 22:43] VITALS: BP 120/79; PULSE 127; RESP 15; TEMP 36.8; O2SAT 95; BMI 32.4
--- NOTE | 2024-12-12 22:52 | PD.EDSEIZ ---
ED Seizures RME/HPI General Chief Complaint: Seizure Stated Complaint: SEIZURES Time Seen by Provider: 12/12/24 22:51 Arrival date/time: 12/12/24 22:39 RME / HPI RME / HPI Narrative: Dr. Mcbride?s Main ED Evaluation: 19yo female EGA 29 weeks gestation without complications although no formerly followed during this current presents for a seizure, reportedly grand-mal type of unknown duration with postictal phase. No urinary/bowel incontinence or tongue bite. Patient arrives alert, although is unsure of details to the event. PMH includes seizure disorder. PSH noncontributory. Social history is negative. Related Data Home Medications ?Medication ?Instructions ?Recorded ?Confirmed ergocalciferol (vitamin D2) 1,250 1,250 unit PO 1XD 02/21/24 02/21/24 mcg (50,000 unit) capsule lamotrigine 300 mg tablet,extended mg PO 10/01/24 release 24 hr levetiracetam 750 mg mg PO BID 10/01/24 tablet,extended release 24 hr pyridoxine (vitamin B6) 25 mg mg 10/01/24 tablet (Vitamin B-6) Allergies Allergy/AdvReac Type Severity Reaction Status Date / Time No Known Allergies Allergy Verified 10/01/24 19:41 Review of Systems Review of Systems Systems Reviewed: All systems reviewed, normal except as documented Past Medical History Past Medical History NEUROLOGIC: Positive Neurological Disorders, Seizures and Spina Bifida CARDIAC: Negative Cardiac Disorders or Congestive Heart Failure RESPIRATORY: Negative Chronic Obstructive Pulmonary Disease (COPD) or Asthma GASTROINTESTINAL: Negative Gastrointestinal Disorders or Hepatitis GENITOURINARY: Positive Genitourinary Disorders; Negative Renal Disease REPRODUCTIVE: Negative Endometriosis, Genital Herpes, Gonorrhea, Pelvic Inflammatory Disease, Previous Pregnancies, Syphilis or Uterine Prolapse MUSCULOSKELETAL: Negative Musculoskeletal Disorders ENDOCRINE: Negative Endocrine Disorders, Diabetes Mellitus Type 1 or Diabetes Mellitus Type 2 HEMATOLOGIC: Negative Blood Disorders OTHER HISTORY: Positive Chicken Pox; Negative Hospitalization, Autoimmune Disease, Down Syndrome, Developmental Delay, Shingles, Falls, Blood Transfusions, Blood Transfusion Reaction, Anesthesia Reactions, Organ Transplant, Chemotherapy, Radiation Therapy, Hyperbaric Therapy, MRSA, VRSA, Vancomycin-Resistant Enterococci, Human Immunodeficiency Virus (HIV), Measles, Mumps, Rubella (Mongolian Measles), Pertussis, Clostridium Difficile or Cancer Family History FAMILY HISTORY: Negative Family Psychiatric Problems, Family Respiratory Disorders, Family Cardiac Disorders, Family Gastrointestinal Problems, Family Cancer, Family Surgery or Family Anesthesia Reaction Surgical History SURGICAL: Negative Section or Organ Transplant Social History SMOKING STATUS: Never smoker SECOND HAND EXPOSURE: No SUBSTANCE USE: does not use ED Exam Narrative Physical exam: GENERAL APPEARANCE: alert and oriented x 4, notably tachycardic, appropriately interactive, well-developed, well-nourished, no acute distress VITALS: All vitals were reviewed and the pulse ox is 95% on room air, which is normal according to my interpretation. HEENT: Normocephalic, atraumatic; pupils equal, round, reactive to light; EOMI; mucous membranes pink, moist; oropharynx clear NECK: Supple LUNGS: CTABL; no wheezes, no rales, no rhonchi HEART: Tachycardic, regular rhythm; normal S1, S2; no murmurs ABDOMEN: non distended; gravid, fundal height 27 cm; soft, no tenderness, no guarding, no rebound; no masses, no organomegaly, no hernia BACK: no CVA tenderness EXTREMITIES: atraumatic; no edema NEUROLOGIC: awake; alert and oriented x4; cranial nerves II-XII grossly intact; no focal sensory or motor deficits PSYCHIATRIC: appropriate mood and affect SKIN: warm, dry, normal color; no rashes Course Quality Measures none Orders Category Date Time Status Bedside Blood Glucose NOW Care 12/12/24 23:07 Active Embedded Software Architect NOW Care 12/12/24 23:08 Active Continuous Pulse Oximetry NOW Care 12/12/24 23:07 Completed Insert IV NOW Care 12/12/24 23:08 Active NPO NOW Care 12/12/24 23:08 Active Non-Stress Test NOW Care 12/13/24 02:07 Active Seizure precautions NOW Care 12/12/24 23:07 Active CBC Stat Lab 12/12/24 22:56 Completed Comprehensive Metabolic Panel Stat Lab 12/12/24 22:56 Completed Drug Screen,Urine Stat Lab 12/13/24 01:11 Completed Magnesium Stat Lab 12/12/24 22:56 Completed Salicylate Stat Lab 12/12/24 22:56 Completed Urinalysis, C/S if Indicated Stat Lab 12/13/24 01:11 Completed Urine Culture Stat Lab 12/13/24 01:11 Received Sodium Chloride 0.9% 1000 ml [Ns] 1,000 ml Med 12/12/24 23:07 Discontinued IV 1,000 mls/hr levETIRAcetam INJ [Keppra Inj] Med 12/12/24 23:11 Discontinued 500 mg IVP X1 ONE Oxygen Delivery NOW RT 12/12/24 23:08 Active Vital Signs Vital signs: Vital Signs Temperature 98.2 F 12/12/24 22:43 Pulse Rate 127 H 12/12/24 22:43 Respiratory Rate 15 12/12/24 22:43 Blood Pressure 120/79 12/12/24 22:43 Pulse Oximetry (%) 95 12/12/24 22:43 Oxygen Delivery Method Room Air 12/12/24 22:43 Seizure MDM Narrative MDM Narrative:: Scribe Attestation: 12/12/24 - Farheen Mccrary am scribing for and in the presence of Dr. Mcbride. 19yo female EGA 29 weeks gestation without complications although no formerly followed during this current presents for a seizure, reportedly grand-mal type of unknown duration with postictal phase. No urinary/bowel incontinence or tongue bite. Please see PE findings. Lab markers demonstrate mild anemia Hgb 11.6, chemistries essentially unremarkable except for mildly elevated LFTs. Patient placed on desk monitor and seizure precautions were placed. Patient received IV fluids in conjunction with Keppra 500mg IV. Patient remained seizure-free throughout ED course. No signs of meningeal irritation to suggest meningitis. Tocometric monitoring performed by OB staff and was normal. After extended period of observation, patient is considered stable for discharge. Will instruct the patient to consult with her neurologist for any anticonvulsant changes. Patient data External records reviewed:: [facility] previous records (Per chart review, patient was seen here on 08/29/24 for .) and EMS form Clinical information provided by:: patient Social determinants that could affect healthcare access:: none Patient has the following chronic illnesses:: seizures How is presenting disease/condition affected by chronic disease/condition?: caused by Evaluation data The following diagnostics were reviewed and interpreted by me:: lab results Lab and/or radiology exams considered but not ordered:: none Interpretation Summary: See MDM. Medications / Prescriptions Medications or Prescriptions considered but not ordered:: none Medication administrations:: Medication Administration History Discontinued Medications Sodium Chloride (Ns) 1,000 mls @ 1,000 mls/hr IV .Q1H ONE Stop: 12/13/24 00:06 Last Infusion: 12/13/24 00:22 Dose: Infused Documented By: Admin: 12/12/24 23:13 Dose: 1,000 mls/hr Documented By: REANNA Levetiracetam (Levetiracetam Inj 100 Mg/Ml Vial 5ml) 500 mg IVP X1 ONE Stop: 12/12/24 23:12 Last Admin: 12/12/24 23:16 Dose: 500 mg Documented By: REANNA see above Consultations Consultation(s) initiated? (list below): No Diagnosis Seizure Differential Diagnosis: generalized seizure, epileptic seizure and status epilepticus Most likely diagnosis given after review of the tests above:: see clinical impression below Admission Indicated Admission indicated?: not indicated Admission Request Was there a request for admission?: No Disposition Plan Disposition Plan: Discharge Discharge Attestation Discharge Attestation: The patient and all family members were given an opportunity to ask questions and understood the discharge instructions. Discharge instructions specifically effects, indications for sooner follow up or return to the emergency department, and the expected course of current diagnosis. Patient condition: Stable Discharge Plan Plan Patient Disposition: HOME (Self Care) Prescriptions/Referrals Prescriptions/Med Rec: No Action ergocalciferol (vitamin D2) 1,250 mcg (50,000 unit) capsule 1,250 unit PO 1XD Patient Comments: take 1 capsule by mouth every week pyridoxine (vitamin B6) [Vitamin B-6] 25 mg tablet Patient Comments: take 1 tablet by mouth twice a day levetiracetam 750 mg tablet extended release 24 hr PO BID Patient Comments: take 4 tablet by mouth once daily lamotrigine 300 mg tablet extended release 24hr PO Referrals: Sincere Martinez DO [Emergency Provider] - In 1 week Problem List Clinical Impression: Epileptic seizure Patient/Caregiver Discharge Instructions Discharge Activity: activity as tolerated Other Activity Instructions:: Avoid driving, operating machinery swimming etc. Education Materials: Epilepsy: Safety During a Seizure Print Language: Montserratian Stand Alone Forms: [employer] Award Info., Patient Portal Info Letter
[2024-12-12 22:53] VITALS: PULSE 130; O2SAT 94
[2024-12-12] MEDS: SODIUM CHLORIDE 0.9% 1000 ML 1,000 ML IV (23:13)
[2024-12-12] MEDS: levETIRAcetam INJ 100 MG/ML VIAL 5ML 500 MG IVP (23:16)
[2024-12-12 23:32] LABS: Basophils # (Auto) 0.0 Thou/mm3 (0.0-0.2); Basophils % (Auto) 0 % (0-2.5); Eosinophils # (Auto) 0.1 Thou/mm3 (0.0-0.5); Eosinophils % (Auto) 1 % (0-10); Hematocrit 34.1 % (36.0-46.0); Hemoglobin 11.6 g/dL (12.0-16.0); Immature Granulocytes Auto 0.27 Thou/mm3 (0.00-0.00); Lymphocytes # (Auto) 2.1 Thou/mm3 (1.0-4.8); Lymphocytes % (Auto) 22 % (10-50); Mean Corpuscular HGB Conc 34.0 g/dl (31.0-37.0); Mean Corpuscular Hemoglobin 28.9 pg (25.0-35.0); Mean Corpuscular Volume 85 fL (80-100); Monocytes # (Auto) 0.6 Thou/mm3 (0.0-0.8); Monocytes % (Auto) 6 % (0-12); Neutrophils # (Auto) 6.4 Thou/mm3 (1.8-7.7); Neutrophils % (Auto) 68 % (37-80); Nucleated Red Blood Cell # 0.00 Thou/mm3 (0.00-0.00); Nucleated Red Blood Cell % 0 /100 WBC (0); Platelet Count 224 Thou/mm3 (140-440); RDW Standard Deviation 39.8 fL (36.4-46.3); Red Blood Count 4.01 Miln/mm3 (4.00-5.20); White Blood Count 9.5 Thou/mm3 (3.6-11.0)
[2024-12-12 23:43] VITALS: BP 109/78; PULSE 97; RESP 16; RESP 98; O2SAT 98
--- NOTE | 2024-12-12 23:51 | PC.NURSE ---
OB called by ALEX Garcias and is present at bedside.
[2024-12-13 00:02] LABS: Alanine Aminotransferase 8 U/L (10-49); Albumin, Serum 3.9 gm/dL (3.5-5.0); Albumin/Globulin Ratio 1.6 (1.2-2.2); Alkaline Phosphatase 134 U/L (46-116); Anion Gap 13 (7-16); Aspartate Amino Transferase 12 U/L (0-34); BUN/Creatinine Ratio 8 Ratio (12-20); Bilirubin,Total 0.2 mg/dL (0.3-1.2); Blood Urea Nitrogen < 5 mg/dL (9-23); Calcium 9.4 mg/dL (8.3-10.6); Calcium (Corrected) 9.5 mg/dL (8.5-10.1); Carbon Dioxide 17.6 mMol/L (20.0-31.0); Chloride 107 mMol/L (98-107); Creatinine (Component) 0.6 mg/dL (0.6-1.3); Estimated Creatinine Clearance 157.1 mL/min (>60); Globulin 2.4 gm/dL (2.3-3.5); Glucose 158 mg/dL (74-106); Magnesium 1.8 mg/dL (1.6-2.6); Osmolality,Calculated 275 (275-295); Potassium 3.4 mMol/L (3.4-5.1); Salicylate < 3.0 mg/dL; Sodium 138 mMol/L (136-145); Total Protein 6.3 gm/dL (5.7-8.2); eGFR > 60 See Note
--- NOTE | 2024-12-13 00:42 | PC.NURSE ---
2350: Antonina CHAVES RN ARRIVED TO ED ROOM 4 FOR NST PER MD ORDER. EFM X2 APPLIED, TO ABDOMEN. ABDOMEN PALPATES SOFT AND NONTENDER. PATIENT VERBALIZES +FM AND DENIES LEAKING OF FLUID OR VAGINAL BLEEDING. MONITORING FROM [phone] , NST REACTIVE, NO UC'S NOTED VIA TOCO OR PALPATION.
[2024-12-13 01:20] LABS: Collection Type, Urine Clean Catch
[2024-12-13 01:22] VITALS: BP 113/72; PULSE 86; RESP 16; TEMP 36.7; O2SAT 99
[2024-12-13 01:25] LABS: Bacteria,Urine 2+; Bilirubin,Urine Negative (Negative); Blood,Urine Negative (Negative); Clarity,Urine Turbid (Clear/Hazy); Color,Urine Lt-Yellow (Lt Yel-Yel); Glucose, Urine Negative (Negative); Ketones,Urine Trace (Negative); Leukocyte Esterase,Urine Positive (Negative); Nitrite,Urine Negative (Negative); PH,Urine 6.5 (5.0-7.0); Protein,Urine Trace (Neg - Trace); RBC,Urine 5 /hpf (0-3); Specific Gravity,Urine 1.016 (1.001-1.035); Squamous Epithelial Cell,Urine 5 /hpf (0-5); Urobilinogen,Urine Negative mg/dL (0.0-1.0); WBC,Urine 30 /hpf (0-5)
[2024-12-13 01:27] LABS: Culture Indicated,Urine Yes
[2024-12-13 01:29] LABS: Amphetamine/Methamp Scrn,U Negative (Negative); Barbiturate Screen,Urine Negative (Negative); Benzodiazepines Screen,Urine Negative (Negative); Benzoylecgonine Screen, Ur Negative (Negative); Fentanyl Screen,Urine Negative (Negative); Opiate Screen,Urine Negative (Negative); THC Screen,Urine Negative (Negative)
[2024-12-13 02:30] VITALS: BP 94/64; PULSE 72; RESP 20; TEMP 36.7; O2SAT 99
[2024-12-13 03:11] VITALS: BP 102/70; PULSE 101; RESP 19; O2SAT 99
== END 2024-12-13 03:12 | disposition home or self-care (01) ==
LOC: SERX 12-13 02:41
PROVIDERS: Emergency Provider Emergency Medicine; PCP Family Medicine
DX: O99.353 Diseases of the nervous system complicating pregnancy, third trimester (principal); G40.909 Epilepsy, unspecified, not intractable, without status epilepticus; Z3A.29 29 weeks gestation of pregnancy
CPT/HCPCS: 36415; 80053; 80307; 80329; 81001; 83735; 85025; 87086; 87186; 96361; 96374; 99284; J1953; J7030; G0480

== ENCOUNTER 2024-12-28 13:11 | Outpatient (AMB) | payer MEDICAID, SELFPAY ==
[2024-12-28 13:33] VITALS: BP 112/74; PULSE 72; RESP 14; TEMP 36.6; O2SAT 96; BMI 34.0
--- NOTE | 2024-12-28 13:33 | AMB.OBINITIA ---
Vital Signs 12/28/24 13:33 Height 1.63 m Height Method Stated Weight 89.925 kg Weight Measurement Method Standing Scale BMI 34.0 BP 112/74 Blood Pressure Source Automatic Cuff Blood Pressure Location Left Upper Arm Position Sitting Respiration 14 Pulse 72 Pulse Source Monitor Temp 97.8 F Temp Source Oral Pulse Oximetry (%) 96 Oxygen Delivery Method Room Air Allergies/Home Meds Allergies & Medications Allergies No Known Allergies Allergy (Verified 12/28/24 13:38) Medication Reconciliation ergocalciferol (vitamin D2) 1,250 mcg (50,000 unit) capsule 1,250 unit PO 1XD 02/21/24 [History Confirmed 12/28/24] lamotrigine 300 mg tablet,extended release 24 hr mg PO 10/01/24 [History Confirmed 12/28/24] levetiracetam 750 mg tablet,extended release 24 hr mg PO BID 10/01/24 [History Confirmed 12/28/24] pyridoxine (vitamin B6) 25 mg tablet (Vitamin B-6) mg 10/01/24 [History Confirmed 12/28/24] Intake Visit Data Collection New Patient or Established: Established Patient (seen at [facility] within 3 years) Reason for Visit:: INITIAL CARE Seen by Clinical Staff ONLY (RN/MA): No D[employer] Operator Required: No Do You Feel Safe at Home: Yes Authorities Contacted: N/A PCP or OBGYN visit in last 3 months: Yes Hx Now: Yes Are you currently on any form of Control: No Pain Present Currently: No Pain Scale Used: Vines-Griffith/Numerical Pain scale:: 0 Smoking Status Smoking Status: Never smoker Questionnaires Covid-19 Vaccine Questionnaire Has patient been vacinated for Covid-19 Have you been vacinated for Covid-19: Yes PHQ-9 PHQ-2 Over the last 2 weeks, how often have you been bothered by any of the following problems? 1. Little interest or pleasure in doing things: not at all 2. Feeling down, depressed, or hopeless: not at all Total score: 0 PHQ-9 3. Trouble falling or staying asleep, or sleeping too much: Not at all 4. Feeling tired or having little energy: Not at all 5. Poor appetite or overeating: Not at all 6. Feeling bad about yourself - or that you are a failure or have let yourself or your family down: Not at all 7. Trouble concentrating on things, such as reading the newspaper or watching television: Not at all 8. Moving or speaking so slowly that other people could have noticed? - Or the opposite - being so fidgety or restless that you have been moving around a lot more than usual: not at all 9. Thoughts that you would be better off or of hurting yourself in some way: Not at all Total score: 0 Source: Developed by Drs. Misael Morales, Kayla Faustin, Joel Rust and colleagues, with an educational daisy from [employer]. 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: Past Medical History Past Medical History: Yes Hx Neurological Disorders, No Hx Cardiac Disorders, No Hx Cancer, No Hx Blood Disorders, No Hx Gastrointestinal Disorders, No Hx Renal Disease, No Hx Diabetes Mellitus Type 1 and No Hx Diabetes Mellitus Type 2 OB Initial Visit OB Flowsheet OB Flowsheet Initial Weight: Not Recorded Date <del>?</del> EGA Weight BP Alb Glu CTX Pres Fundal ht FHR Mov Dilation Station Effacement Hx Notes Visit Note 12/28/24 <del>?</del> 36w 6d 89.925 kg 112/74 absent unknown 37 145 active - Leslie Marquis is a 2 para 1 female at approximately 36 weeks and 6 days gestation presenting to [facility] obstetric care. - She has a history of seizure disorder and is currently taking lamotrigine and levetiracetam (Keppra). - She reports having seizures since September, describing them as occurring rarely with no pattern. - States she takes her seizure medications as prescribed. - Notes that recent seizures have been unexpected and without auras, whereas previously she would experience auras before seizures. - In September, she was hospitalized after having a seizure. - Was initially taken to [facility], then transferred by helicopter to [place]. - Stayed in the hospital for one night in [place] before being discharged. - Had ultrasounds performed during her hospitalization in [place]. - She has a [id number] son from her previous , which resulted in a vaginal at full term. - Current is a girl with an estimated due date of January 19. - Schedule induction of labor for January 12 at 39+ weeks gestation - Weekly visits until delivery - Ultrasound next week to monitor growth, to be performed in labor and delivery on 4th floor - Continue current seizure medications (lamotrigine and levetiracetam) - Obtain medical records from [facility] regarding previous hospitalization and ultrasounds - Enter all patient records into computer system for hospital access Menstrual History Menstrual reliability: approximate (month known) Flow: normal Menstrual regularity: regular Monthly: Yes Age at menarche: 9 On control pills at conception: No Associated symptoms (LMP): Reports fatigue OB History : 2 Para: 1 # of Living Children: 1 Delivery History 1st : Child's name: LINDA date: 04/10/19 sex: male Gestational age at delivery (weeks): 40 Delivery type: vaginal Delivery complications: NONE History of depression before or after : No Infection History & Risk Evaluation History of STDs: none Genetic Screening & History Genetic Screening/Teratology Counseling - Includes patient, baby's father, or anyone in either family with: 1. Patient's age 35 years or older as of estimated date of delivery: No 2. Thalassemia (Lao, Nigerien, Mediterranean, or Background); MCV less than 80: No 3. Neural Tube Defect (Meningomyelocele, Spina Bifida, or Anencephaly): No 4. Congenital Heart Defect: No 5. Down Syndrome: No 6. Marcos-Sachs (Ashkenazi Sikh, Cajun, Maltese Stuart): No 7. Myah Disease (Ashkenazi Sikh): No 8. Familial Dysautonomia (Ashkenazi Sikh): No 9. Sickle Cell Disease or Trait (): No 10. Hemophilia or other blood disorders: No 11. Muscular Dystrophy: No 12. Cystic Fibrosis: No 13. [place]'s Chorea: No 14. Mental Retardation/Autism: No 15. Other inherited genetic or chromosomal disorder: No 16. Maternal Metabolic Disorder (EG,TYPE 1 Diabetes, PKU): No 17. Patient or baby's father had a child with defects not listed above: No 18. Recurrent loss or a stillbirth: No 19. Medications (including supplements, vitamins, herbs or otc drugs)/illicit/recreational drugs/alcohol since last menstrual period: No 20. Any other: No Infection History 1. Live with someone with TB or exposed to TB: No 2. Rash or viral illness since last menstrual period: No 3. Hepatitis B,C: No Other (see comments) Source: [employer] Review of Systems Constitutional Constitutional: Reports fatigue Endocrine Endocrine: Reports fatigue Assessment & Plan Diagnosis / Problem List (1) Supervision of high risk , unspecified, third trimester: Status: Acute (2) Seizure disorder: Status: Acute Plan Problem List - Seizure disorder - at 36 weeks 6 days gestation - Abnormal glucose tolerance test in - Urinary tract infection Assessment 37-week patient with seizure disorder on lamotrigine and levetiracetam presenting for care establishment. Patient reports recent seizures without auras, which differs from her previous pattern of seizures with auras. One-hour glucose screening was elevated at 155 mg/dL. Patient had recent hospitalization in September requiring helicopter transfer to [place] due to seizure, with one-night stay and discharge. Current is 2 para 1 with estimated due date of January 19, 2025. heart rate is 130 bpm which is within normal limits. Plan - Schedule induction of labor for January 12 at 39+ weeks gestation - Weekly visits until delivery - Ultrasound next week to monitor growth, to be performed in labor and delivery on 4th floor - Continue current seizure medications (lamotrigine and levetiracetam) - Obtain medical records from [facility] regarding previous hospitalization and ultrasounds - Enter all patient records into computer system for hospital access 1. Progress Reviewed gestational age (36 weeks 6 days), growth, and heart rate (130 bpm, normal). Planned frequent visits (weekly until delivery). 2. Instructed patient to monitor movements and report decreases immediately. 3. Testing Counseled on routine third-trimester labs per guidelines. Discussed potential need for ultrasound or monitoring based on risk factors (seizure disorder and antiepileptic medications). 4. Preeclampsia Precaution Educated on preeclampsia signs: severe headache, vision changes, right upper quadrant pain, sudden swelling. Advised urgent reporting of symptoms and discussed blood pressure monitoring if high risk. 5. Labor Precautions Reviewed labor signs: regular contractions, pelvic pressure, back pain, bleeding, or fluid leakage. Instructed to seek immediate care for these symptoms. 6. Lifestyle and Delivery Preparation Reinforced vitamins, nutrition, and safe activity. Discussed plan (induction scheduled for January 12 at 39+ weeks due to seizure medications), pain management, and . Advised on labor preparation (e.g., hospital bag) and expectations. 7. Psychosocial Support Assessed emotional well-being and offered resources for mental health or parenting support.
== END 2024-12-28 13:54 | disposition home or self-care (01) ==
PROVIDERS: PCP Family Medicine; Referring Provider Family Medicine; Supervising Provider Obstetrics & Gynecology; Visit Provider Obstetrics & Gynecology
DX: O09.893 Supervision of other high risk pregnancies, third trimester (principal); O99.353 Diseases of the nervous system complicating pregnancy, third trimester; G40.909 Epilepsy, unspecified, not intractable, without status epilepticus; O99.810 Abnormal glucose complicating pregnancy; O23.43 Unspecified infection of urinary tract in pregnancy, third trimester; Z3A.37 37 weeks gestation of pregnancy; Z79.899 Other long term (current) drug therapy
CPT/HCPCS: 99214; G0463